=== PATIENT | male | born 1995 | race African-American/Black ===

== ENCOUNTER 2023-11-10 08:51 | Emergency (ER) | payer OTHER ==
[2023-11-10] MEDS ORDERED: Acetaminophen 500 MG TAB ONE (09:51)
[2023-11-10] MEDS ORDERED: Ibuprofen 800 MG TAB ONE (09:51)
== END 2023-11-10 11:49 | disposition home or self-care (01) ==
LOC: ERS 08:51
DX: S86.911A Strain of unspecified muscle(s) and tendon(s) at lower leg level, right leg, initial encounter (principal); F17.290 Nicotine dependence, other tobacco product, uncomplicated; V86.95XA Unspecified occupant of 3- or 4- wheeled all-terrain vehicle (ATV) injured in nontraffic accident, initial encounter
CPT/HCPCS: 72072; 72100